=== PATIENT | male | born 1985 | race African-American/Black ===

== ENCOUNTER 2017-05-20 20:01 | Emergency (ER) | payer BC ==
[~2017-05-20] VITALS: Ht 185.4 cm; Wt 102.0 kg
[2017-05-20 20:48] VITALS: BP 119/76
== END 2017-05-20 22:30 | disposition home or self-care (01) ==
LOC: ER 21:28
DX: S06.0X0A Concussion without loss of consciousness, initial encounter (principal); M54.2 Cervicalgia; R42 Dizziness and giddiness; R51 Headache; V49.40XA Driver injured in collision with unspecified motor vehicles in traffic accident, initial encounter; Y93.89 Activity, other specified; Y92.410 Unspecified street and highway as the place of occurrence of the external cause
CPT/HCPCS: 99281; Z7610